=== PATIENT | male | born 1960 | race Caucasian/White ===

== ENCOUNTER 2019-06-28 19:55 | Emergency (ER) | payer OTHER ==
[2019-06-28] MEDS ORDERED: NA CHLORIDE 0.9% 3,000 ML ONE (20:17)
[2019-06-28] MEDS ORDERED: IBUPROFEN 400 MG TAB ONE (20:17)
[2019-06-28 20:27] LABS: Absolute Lymphocytes (CBC) 0.5 K/uL (0.7-4.9); Basophils % 0.9 % (0-1.3); Hematocrit 44.7 % (39.6-49.0); Lymphocytes % 7.8 % (15.3-44.8); MPV 7.4 fL (7.6-11.3); RBC Red Blood Cell Count 5.08 M/uL (4.33-5.43)
[2019-06-28 20:39] LABS: Potassium 3.9 mmol/L (3.5-5.1)
[2019-06-28] MEDS ORDERED: CEFTRIAXONE/SWI 1gm 1 GM/10 ML SYR ONE (20:41)
--- NOTE | 2019-06-28 20:44 | RAD REPORT ---
EXAM DESCRIPTION: RAD - Chest Single View - 06/28/2019 8:35 pm CLINICAL HISTORY: FEVER Chest pain. COMPARISON: No comparisons FINDINGS: Portable technique limits examination quality. The lungs are emphysematous but grossly clear. The heart is normal in size. No displaced fractures. IMPRESSION: Mild COPD.
[2019-06-28 20:50] LABS: Urine Bacteria <20 /HPF (NONE SEEN); Urine RBC TNTC /HPF (NONE SEEN)
[2019-06-28 20:51] LABS: Urine Culture Reflex Order NOT NEEDED
[2019-06-28 20:52] LABS: Urine Blood 3+ (NEG); Urine Glucose NEGATIVE (NEG); Urine Protein 3+ (NEG); Urine Specific Gravity 1.015 (1.005-1.030); Urine pH 5.5 (5.0-7.0)
[2019-06-28] MEDS ORDERED: ACETAMINOPHEN 325 MG TABLET ONE (23:51)
--- NOTE | 2019-06-29 00:07 | ER ---
Nurse's Notes [facility] Name: Jesus Starkey Age: 59 yrs Sex: Male : 1960 Arrival Date: 06/28/2019 Time: 19:57 Bed 7 Private MD: Diagnosis: Urinary tract infection, site not specified;Acute prostatitis Presentation: 06/28 19:55 Presenting complaint: Patient states: that he has a prostate biopsy yesterday by Dr dg Romeo [phone]. Then today he noticed blood in his urine about 1530. Then at 1700 he became lethargic and just not feeling well. Then at 1800 he started to have chills and fever. Max temp of 102.7. Pt is on Bactrim. Transition of care: patient was not received from another setting of care. Onset of symptoms was June 28, 2019. Risk Assessment: Do you want to hurt yourself or someone else? Patient reports no desire to harm self or others. Initial Sepsis Screen: Does the patient meet any 2 criteria? Temp <36.0*C (96.8*F)) or > 38.3*C (100.9*F). HR > 90 bpm. Yes Does the patient have a suspected source of infection? Yes: Other: Prostate If YES to both, name of provider notified: Willard Dee MD Care prior to arrival: Medication(s) given: Tylenol, 1000 mg, at 1730. 19:55 Method Of Arrival: Wheelchair 19:55 Acuity: EUSEBIO 2 fc Historical: - Allergies: 20:15 No Known Allergies; fc - Home Meds: 20:15 Pravachol 20 mg Oral tab 1 tab once daily [Active]; tumeric daily [Active]; CoQ-10 100 fc mg oral cap daily [Active]; aspirin 81 mg Oral TbEC 1 tab once daily [Active]; Multiple Vitamins oral tab daily [Active]; - PMHx: 20:15 Enlarged Prostate; High Cholesterol; fc - PSHx: 20:15 Prostate biopsy; Left Rotator Cuff Repair; fc - Immunization history:: Last tetanus immunization: unknown, Flu vaccine is not up to date. - Social history:: Smoking status: Patient/guardian denies using tobacco, Patient/guardian denies using alcohol, street drugs. - Ebola Screening: : Patient negative for fever greater than or equal to 101.5 degrees Fahrenheit, and additional compatible Ebola Virus Disease symptoms Patient denies exposure to infectious person Patient denies travel to an Ebola-affected area in the 21 days before illness onset. - Family history:: not pertinent. - Hospitalizations: : No recent hospitalization is reported. Screenin:55 Abuse screen: Denies threats or abuse. Nutritional screening: No deficits noted. Tuberculosis screening: No symptoms or risk factors identified. Fall Risk None identified. Assessment: 20:28 General: Appears in no apparent distress. comfortable, well groomed, Behavior is calm, ak1 cooperative, appropriate for age. Pain: Complains of pain in headache. Neuro: Level of Consciousness is awake, alert, obeys commands, Oriented to person, place, time, situation, Appropriate for age Derrick Car Operator are equal bilaterally Moves all extremities. Full function Speech is normal, Facial symmetry appears normal. Cardiovascular: Heart tones S1 S2 Rhythm is sinus tachycardia. Respiratory: Airway is patent Respiratory effort is even, unlabored, Respiratory pattern is regular, Breath sounds are clear bilaterally. GI: No signs and/or symptoms were reported involving the gastrointestinal system. : No signs and/or symptoms were reported regarding the genitourinary system. Reports urinary frequency, blood tinged urine s/p prostate procedure. EENT: No signs and/or symptoms were reported regarding the EENT system. Derm: Reports fever since this afternoon. Musculoskeletal: No signs and/or symptoms reported regarding the musculoskeletal system. 20:49 Reassessment: Patient appears in no apparent distress at this time. Patient is alert, ak1 oriented x 3, equal unlabored respirations, skin warm/dry/pink. 06/29 01:24 Reassessment: report given to Thuy at [facility]. ak1 Vital Signs: 06/28 19:55 BP 167 / 89; Pulse 117; Resp 18; Temp 103.8(O); Pulse Ox 96% on R/A; Weight 88.45 kg fc (R); Height 5 ft. 10 in. (177.80 cm) (R); Pain 2/10; 20:48 BP 140 / 79; Pulse 111; Resp 22; Pulse Ox 94% on R/A; ak1 21:06 Temp 103.1(O); ak1 21:21 BP 145 / 78; Pulse 105; Resp 26; Pulse Ox 96% on R/A; ak1 22:29 BP 141 / 95; Pulse 120; Resp 24; Temp 102.4(O); Pulse Ox 94% on R/A; Pain 0/10; ak1 23:36 BP 114 / 73; Pulse 112; Resp 20; Temp 101.3(O); Pulse Ox 96% on R/A; ak1 06/29 00:40 BP 106 / 70; Pulse 128; Resp 24; Pulse Ox 98% on R/A; ak1 01:01 BP 106 / 68; Pulse 99; Resp 16; Pulse Ox 95% on R/A; ak1 01:54 BP 106 / 68; Pulse 98; Resp 18; Temp 98.8(O); Pulse Ox 96% on R/A; ak1 06/28 19:55 Body Mass Index 27.98 (88.45 kg, 177.80 cm) fc ED Course: 06/28 19:55 Arm band placed on Patient placed in an exam room, on a stretcher. fc 19:55 Patient has correct armband on for positive identification. Placed in gown. Bed in low fc position. Call light in reach. Side rails up X 1. hall monitor on. Pulse ox on. NIBP on. 19:55 No provider procedures requiring assistance completed. fc 19:57 Patient arrived in ED. es 19:58 Willard Dee MD is Attending Physician. rn 20:11 Triage completed. fc 20:15 Initial lab(s) drawn, by mt, sent to lab. First set of blood cultures drawn Urine ak1 collected: clean catch specimen, jigar blood, Flu and/or RSV swab sent to lab. Strep swab sent to lab. X-ray(s) taken. 20:26 Jenae Buckley, RN is Primary Nurse. ak1 20:27 Inserted saline lock: 20 gauge in right hand, using aseptic technique. Blood collected. ak1 20:30 Second set of blood cultures drawn by me. ak1 20:31 Urine Microscopic Only Sent. ds4 20:32 Urine Culture Sent. ds4 20:34 Chest Single View XRAY In Process Unspecified. EDMS 20:34 Basic Metabolic Panel Sent. ds4 20:34 Blood Culture Adult (2) Sent. ds4 20:34 CBC with Diff Sent. ds4 20:34 Lactate Sent. ds4 20:34 Procalcitonin Sent. ds4 20:34 Flu Sent. ds4 20:34 Strep Sent. ds4 20:34 Urine Dipstick--Ancillary (enter results) Sent. ds4 20:49 Door closed. Lights dimmed. Pillow given. PO fluids given. sheet given. ak1 20:54 Notified ED physician of. ak1 21:50 Inserted saline lock: 18 gauge in left antecubital area, using aseptic technique. ds4 22:45 CT Abd/Pelvis - IV Contrast Only In Process Unspecified. EDMS 22:58 Repeat lab(s) drawn. by mt, sent to lab. ak1 06/29 01:09 Patient transferred, IV remains in place. ak1 Administered Medications: 06/28 20:26 Drug: Motrin 800 mg Route: PO; ak1 21:44 Follow up: Response: No adverse reaction; Temperature is unchanged ak1 20:27 Drug: NS 0.9% (30 ml/kg) 30 ml/kg Route: IV; Rate: bolus; Site: right hand; ak1 22:10 Follow up: IV Status: Completed infusion; IV Intake: 2650ml ak1 20:39 Drug: Rocephin - (cefTRIAXone) 1 grams Route: IVPB; Infused Over: 30 mins; Site: right ak1 hand; 20:48 Follow up: IV Status: Completed infusion; IV Intake: 10ml ak1 23:53 Drug: Tylenol 650 mg Route: PO; jb4 06/29 00:41 Follow up: Response: No adverse reaction ak1 Intake: 06/28 20:48 IV: 10ml; Total: 10ml. ak1 22:10 IV: 2650ml; Total: 2660ml. ak1 Outcome: 06/29 00:06 ER care complete, transfer ordered by MD. sutton 01:09 Transferred by ground EMS to [facility], Transfer form completed. X-rays ak1 sent w/ patient. 01:09 Condition: stable 01:09 Instructed on the need for transfer. 01:55 Patient left the ED. ak1 Addendum: 06/30/2019 14:50 Addendum: Culture Results: Positive urine culture. Phone call Attempt #1 pt was i w transferred to [facility], faxed culture report to Nurse's station [place] [id number], spoke with DORIS Faustin. 07/01/2019 08:41 Addendum: Culture Results: Positive blood culture. Phone call Attempt #1 called dominique bel[facility] [place], faxed blood culture report to [place] [id number] nurse's station, spoke with Radha. Signatures: Dispatcher [employer] Iman Beck Felicia RN RN Jennifer Mercedes RN RN iw Nieto, Roman, MD MD rn Swanson, Donovan ds4 Jenae Buckley RN RN ak1 Jaron Chandler RN RN jb4
--- NOTE | 2019-06-29 00:08 | EDPHYS ---
Physician Documentation [facility] Name: Jesus Starkey Age: 59 yrs Sex: Male : 1960 Arrival Date: 06/28/2019 Time: 19:57 Bed 7 Private MD: ED Physician Willard Dee HPI: 06/28 20:41 This 59 yrs old Male presents to ER via Wheelchair with complaints of fever. rn 20:41 The patient reports fever, that was measured at 103.8 degrees Fahrenheit. Onset: The rn symptoms/episode began/occurred today. Modifying factors: there are no obvious modifying factors. Associated signs and symptoms: Pertinent positives: chills, Pertinent negatives: abdominal pain, altered mental status, cough, diarrhea, hemoptysis, runny nose, sinus congestion, sinus drainage, skin rash, shortness of breath, sore throat, swelling, vomiting. Severity of symptoms: At their worst the symptoms were mild in the emergency department the symptoms are unchanged. The patient has not experienced similar symptoms in the past. The patient has been recently seen by a physician:. Reports fever, chills, generalized weakness, began prior to arrival. Just had prostate biopsy yesterday morning, on prophylactic bactrim since day prior to procedure. Denies any overt symptoms such as cough/sob/sore throat/congestion/abd pain. Reports mild hematuria, has held aspirin since prior to surgery, single small clot, no retention.. Historical: - Allergies: 20:15 No Known Allergies; fc - Home Meds: 20:15 Pravachol 20 mg Oral tab 1 tab once daily [Active]; tumeric daily [Active]; CoQ-10 100 fc mg oral cap daily [Active]; aspirin 81 mg Oral TbEC 1 tab once daily [Active]; Multiple Vitamins oral tab daily [Active]; - PMHx: 20:15 Enlarged Prostate; High Cholesterol; fc - PSHx: 20:15 Prostate biopsy; Left Rotator Cuff Repair; fc - Immunization history:: Last tetanus immunization: unknown, Flu vaccine is not up to date. - Social history:: Smoking status: Patient/guardian denies using tobacco, Patient/guardian denies using alcohol, street drugs. - Ebola Screening: : Patient negative for fever greater than or equal to 101.5 degrees Fahrenheit, and additional compatible Ebola Virus Disease symptoms Patient denies exposure to infectious person Patient denies travel to an Ebola-affected area in the 21 days before illness onset. - Family history:: not pertinent. - Hospitalizations: : No recent hospitalization is reported. ROS: 20:44 Constitutional: + fever and chills Eyes: Negative for injury, pain, redness, and rn forensic, Neck: Negative for injury, pain, and swelling, Cardiovascular: Negative for chest pain, palpitations, and edema, Respiratory: Negative for shortness of breath, cough, wheezing, and pleuritic chest pain, Abdomen/GI: Negative for abdominal pain, nausea, vomiting, diarrhea, and constipation, : + mild hematuria and weak stream but able to urinate MS/Extremity: Negative for injury and deformity, Skin: Negative for injury, rash, and discoloration, Neuro: Negative for headache, weakness, numbness, tingling, and seizure. Exam: 20:44 Constitutional: This is a well developed, well nourished patient who is awake, alert, rn and in no acute distress. Head/Face: Normocephalic, atraumatic. Eyes: Pupils equal round and reactive to light, extra-ocular motions intact. Lids and lashes normal. Conjunctiva and sclera are non-icteric and not injected. Cornea within normal limits. Periorbital areas with no swelling, redness, or edema. ENT: dry MM, no stridor or swelling, mild pharyngeal erythema Neck: Trachea midline, non-tender cervical LAD, no meningismus Cardiovascular: tachycardic, regular, no murmur Respiratory: Lungs have equal breath sounds bilaterally, clear to auscultation. No increased work of breathing, no retractions or nasal flaring. Abdomen/GI: soft, non-tender Skin: Warm, dry, no cellulitis MS/ Extremity: Pulses equal, no cyanosis. Neurovascular intact. Full, normal range of motion. Equal circumference. Neuro: Awake and alert, GCS 15, oriented to person, place, time, and situation. Cranial nerves II-XII grossly intact. Motor strength 5/5 in all extremities. Sensory grossly intact. 20:47 ECG was reviewed by the Attending Physician. rn Vital Signs: 19:55 BP 167 / 89; Pulse 117; Resp 18; Temp 103.8(O); Pulse Ox 96% on R/A; Weight 88.45 kg fc (R); Height 5 ft. 10 in. (177.80 cm) (R); Pain 2/10; 20:48 BP 140 / 79; Pulse 111; Resp 22; Pulse Ox 94% on R/A; ak1 21:06 Temp 103.1(O); ak1 21:21 BP 145 / 78; Pulse 105; Resp 26; Pulse Ox 96% on R/A; ak1 22:29 BP 141 / 95; Pulse 120; Resp 24; Temp 102.4(O); Pulse Ox 94% on R/A; Pain 0/10; ak1 23:36 BP 114 / 73; Pulse 112; Resp 20; Temp 101.3(O); Pulse Ox 96% on R/A; ak1 06/29 00:40 BP 106 / 70; Pulse 128; Resp 24; Pulse Ox 98% on R/A; ak1 01:01 BP 106 / 68; Pulse 99; Resp 16; Pulse Ox 95% on R/A; ak1 01:54 BP 106 / 68; Pulse 98; Resp 18; Temp 98.8(O); Pulse Ox 96% on R/A; ak1 06/28 19:55 Body Mass Index 27.98 (88.45 kg, 177.80 cm) fc MDM: 06/28 19:58 Patient medically screened. rn 06/29 00:03 Differential diagnosis: bacterial infection, UTI. Data reviewed: vital signs, nurses rn notes, lab test result(s), radiologic studies, CT scan, and as a result, I will admit patient. Counseling: I had a detailed discussion with the patient and/or guardian regarding: the historical points, exam findings, and any diagnostic results supporting the discharge/admit diagnosis, lab results, radiology results, the need for further work-up and treatment in the hospital, the need to transfer to another facility. Response to treatment: the patient's symptoms have mildly improved after treatment, and as a result, I will admit patient. ED course: Consulted with Linda Gillette with [facility], accepts patient for transfer to [facility] for UTI with recent prostate biopsy. fever difficult to control, HR still elevated, and lactate trending upward despite 3 L fluid and abx. . 06/28 20:13 Order name: Urine Culture rn 06/28 20:13 Order name: Basic Metabolic Panel; Complete Time: 20:48 06/28 20:13 Order name: Blood Culture Adult (2) 06/28 20:13 Order name: CBC with Diff 06/28 20:13 Order name: Lactate; Complete Time: 21:25 06/28 20:13 Order name: Procalcitonin; Complete Time: 21:25 06/28 20:13 Order name: Urine Microscopic Only; Complete Time: 21:25 06/28 20:13 Order name: Flu; Complete Time: 21:25 06/28 20:13 Order name: Strep; Complete Time: 20:48 06/28 20:33 Order name: Urine Dipstick--Ancillary (enter results); Complete Time: 21:25 ds4 06/28 20:35 Order name: Glucose, Ancillary Testing; Complete Time: 20:48 [facility] 06/28 20:43 Order name: Throat Culture [facility] 06/28 23:33 Order name: Lactate Sepsis 2 HR Follow-up; Complete Time: 00:28 [facility] 06/28 20:13 Order name: IV Start; Complete Time: 20:26 06/28 20:13 Order name: Chest Single View XRAY; Complete Time: 20:48 06/28 20:13 Order name: Accucheck; Complete Time: 20:26 06/28 20:13 Order name: Cardiac monitoring; Complete Time: 20:26 06/28 20:13 Order name: EKG - Nurse/Tech; Complete Time: 20:48 06/28 20:13 Order name: IV Saline Lock - Large Bore; Complete Time: 20:26 06/28 20:13 Order name: Labs collected and sent; Complete Time: 20:26 06/28 20:13 Order name: O2 Per Protocol; Complete Time: 20:26 06/28 20:13 Order name: O2 Sat Monitoring; Complete Time: 20:26 06/28 20:13 Order name: Urine Dipstick-Ancillary (obtain specimen); Complete Time: 20:26 06/28 21:46 Order name: CT Abd/Pelvis - IV Contrast Only rn EC/16 20:47 Rate is 107 beats/min. Rhythm is regular. QRS [place] is Normal. IA interval is normal. rn QRS interval is normal. QT interval is normal. No Q waves. T waves are Normal. No ST changes noted. Clinical impression: Sinus tachycardia. Interpreted by me. Reviewed by me. Administered Medications: 20:26 Drug: Motrin 800 mg Route: PO; ak1 21:44 Follow up: Response: No adverse reaction; Temperature is unchanged ak1 20:27 Drug: NS 0.9% (30 ml/kg) 30 ml/kg Route: IV; Rate: bolus; Site: right hand; ak1 22:10 Follow up: IV Status: Completed infusion; IV Intake: 2650ml ak1 20:39 Drug: Rocephin - (cefTRIAXone) 1 grams Route: IVPB; Infused Over: 30 mins; Site: right ak1 hand; 20:48 Follow up: IV Status: Completed infusion; IV Intake: 10ml ak1 23:53 Drug: Tylenol 650 mg Route: PO; jb4 06/29 00:41 Follow up: Response: No adverse reaction ak1 Disposition: 06/29/19 00:06 Transfer ordered to [facility]. Diagnosis are Urinary tract infection, site not specified, Acute prostatitis. - Reason for transfer: Higher level of care. - Accepting physician is Dr. Gillette. - Condition is Stable. - Problem is new. - Symptoms have improved. Signatures: Dispatcher [employer] [facility] Jeannette Mckee RN Willard Lyon MD MD rn Krenek, Amber, RN RN ak1 Jaron Chandler RN RN jb4 Corrections: (The following items were deleted from the chart) 06/28 20:44 20:41 Reports fever, chills, generalized weakness, began prior to arrival. Just had rn prostate biopsy yesterday morning, on prophylactic bactrim since day prior to procedure. . rn 23:21 22:53 LACTATE+C.LAB.BRZ ordered. [facility] 06/29 01:55 00:06 06/29/2019 00:06 Transfer ordered to [facility]. Diagnosis is ak1 Urinary tract infection, site not specified; Acute prostatitis. Reason for transfer: Higher level of care. Accepting physician is Dr. Gillette. Condition is Stable. Problem is new. Symptoms have improved. rn
[2019-06-29 02:51] VITALS: O2SAT 96
[2019-06-29 03:27] VITALS: BP 106/68; TEMP 98.8
[2019-06-29 09:21] LABS: Blood Morphology Comment NOT SEEN (NOT SEEN); Platelet Estimate ADEQ; Urine White Blood Cell Casts OK
--- NOTE | 2019-06-30 07:09 | EKG ---
Test Date: 2019-06-28 Test Time: 20:44:00 Motor Vehicle Clerk: JEREMY MEASUREMENT RESULTS: Intervals: Rate: 107 MO: 162 QRSD: 88 QT: 386 QTc: 515 [place]: P: 60 MO: 162 QRS: 76 T: 44 INTERPRETIVE STATEMENTS: Sinus tachycardia Otherwise normal ECG Electronically Signed On 06-30-19 07:08:01 BUSINESS CONTINUITY PLANNER by Beau Guevara
--- NOTE | 2019-06-30 12:39 | RAD REPORT ---
EXAM DESCRIPTION: CT - Abdomen Pelvis W Contrast - 06/29/2019 12:34 am CLINICAL HISTORY: Fever, s/p prostate biopsy yesterday, eval for complication COMPARISON: None. TECHNIQUE: CT ABDOMEN PELVIS WITH IV CONTRAST on 06/28/2019 9:46 PM RESIDENTIAL DOOR UNIT INSTALLER This exam was performed according to our departmental dose-optimization program, which includes autom ated exposure control, adjustment of the mA and/or kV according to patient size and/or use of iterati ve reconstruction technique. FINDINGS: Lower lungs are clear. Abdomen: The liver is normal in appearance. There is no biliary dilatation. The gallbladder is normal in appearance. The pancreas and spleen are normal in appearance. Adrenal glands are normal. There is a small mid pole left renal cyst. There is a punctate mid pole right renal calculus without hydronep hrosis. Abdominal aorta is normal in course and caliber without aneurysm. There is no free air. There is no r etroperitoneal adenopathy. Pelvis: There is moderate amount of stool throughout the colon. Urinary bladder is unremarkable. Ther e is no free fluid. Appendix is normal. Skeleton: There are no acute osseous findings. No suspicious bony lesions. IMPRESSION: Minimal right nephrolithiasis without hydronephrosis. No definite acute findings. Electronically signed by: Tal Romero MD 06/28/2019 10:56 PM RESIDENTIAL DOOR UNIT INSTALLER Due to temporary technical issues with the PACS/Fluency reporting system, reports are being signed by the in house radiologist as a courtesy to ensure prompt reporting. The interpreting radiologist is f ully responsible for the content of the report.
== END 2019-06-29 01:55 | disposition short-term general hospital (02) ==
LOC: ER 19:55
DX: N39.0 Urinary tract infection, site not specified (principal); N41.0 Acute prostatitis; E78.00 Pure hypercholesterolemia, unspecified
CPT/HCPCS: 96365; 93005; 87040 ×2; 87070; 87088; 85025; 87086; 80048; 36415; 87205 ×4; 82947; 87081; 83605 ×2; 87077 ×3; 87186 ×3; 84145; 87804 ×2; 74177; 71045; 96375; 99285; 96366; Q9967; J0696; J7030; 81003; 81015